=== PATIENT | male | born 1980 | race Caucasian/White ===

== ENCOUNTER 2023-11-19 17:19 | Emergency (ER) | payer OTHER ==
[~2023-11-19] VITALS: Ht 195.6 cm; Wt 131.5 kg
[2023-11-19 17:44] VITALS: BP_SYST 130; PULSE 69; RESP 16; TEMP 97.7; O2SAT 98
[2023-11-19] MEDS ORDERED: AUG875 PO (20:24)
[2023-11-19 20:27] LABS: BASOPHILS # (AUTO) 0.1 K/uL (0.0-0.2); BASOPHILS % (AUTO) 0.9 % (0.0-2.0); EOSINOPHILS # (AUTO) 0.4 K/uL (0.0-0.4); EOSINOPHILS % (AUTO) 3.9 % (0.0-4.0); HEMOGLOBIN 15.4 g/dL (14.0-18.0); LYMPHOCYTES # (AUTO) 2.9 K/uL (1.0-5.5); MEAN CORPUSCULAR HEMOGLOBIN 32 pg (27-31); MEAN CORPUSCULAR HGB CONC 35 % (32-36); MEAN CORPUSCULAR VOLUME 91 fL (79.0-98.0); MONOCYTES # (AUTO) 0.7 K/uL (0.0-1.0); NEUTROPHILS # (AUTO) 5.1 K/uL (1.8-7.7); NEUTROPHILS % (AUTO) 55.2 % (40.0-70.0); PLATELET COUNT (AUTO) 291 K/uL (130-430); RED BLOOD CELL COUNT(AUTO) 4.86 MIL/uL (4.2-6.2); RED CELL DISTRIBUTION WIDTH 12.7 % (9.0-15.0); WHITE BLOOD COUNT (AUTO) 9.2 K/uL (4.8-10.8)
[2023-11-19 20:41] LABS: ALBUMIN 3.5 g/dL (3.4-4.8); BILIRUBIN,DIRECT 0.1 mg/dL (0.0-0.3); CALCIUM 8.4 mg/dL (8.4-11.0); CREATININE 1.11 mg/dL (0.55-1.30); POTASSIUM 4.2 mmol/L (3.5-5.1); TOTAL BILIRUBIN 0.3 mg/dL (0.0-1.0); TOTAL PROTEIN, SERUM 7.8 g/dL (6.4-8.3)
[2023-11-19 21:08] VITALS: BP_SYST 130; PULSE 69; RESP 16; TEMP 97.7; O2SAT 98
== END 2023-11-19 21:08 | disposition home or self-care (01) ==
LOC: SED 17:19
DX: K11.21 Acute sialoadenitis (principal); L02.11 Cutaneous abscess of neck; Z79.899 Other long term (current) drug therapy
CPT/HCPCS: 36415; 70486-TC; 76376; 80048; 80076; 85025; 99284